=== PATIENT | female | born 1950 | race Caucasian/White ===

== ENCOUNTER 2017-07-24 13:08 | Outpatient (CLI) | payer MEDICARE, OTHER ==
--- NOTE | 2017-07-24 15:17 | XRAY Report ---
BILATERAL KNEES: 07/24/2017 COMPARISON: No comparison. INDICATION: Bilateral knee pain. TECHNIQUE: Three views of each knee. FINDINGS: There are small enthesophytes of the superior patellae bilaterally. No other degenerative changes. Normal alignment. No evidence of acute fracture. IMPRESSION: SMALL PATELLAR ENTHESOPHYTES. OTHERWISE, NEGATIVE KNEES. TD: 07/24/2017 15:16 [facility]
--- NOTE | 2017-07-24 15:19 | XRAY Report ---
THORACIC SPINE: 07/24/2017 COMPARISON: No comparison. INDICATION: Thoracic spine pain. TECHNIQUE: Two views. FINDINGS: Normal alignment. No evidence of acute fracture. No appreciable degenerative changes. IMPRESSION: NEGATIVE THORACIC SPINE. TD: 07/24/2017 15:18 [facility]
== END 2017-07-24 13:09 | disposition home or self-care (01) ==
LOC: DI.S 13:08
PROVIDERS: ATTEND Internal Medicine
DX: M54.6 Pain in thoracic spine (principal); M25.561 Pain in right knee; M25.562 Pain in left knee; M76.892 Other specified enthesopathies of left lower limb, excluding foot; M76.891 Other specified enthesopathies of right lower limb, excluding foot
CPT/HCPCS: 72070

== ENCOUNTER 2017-07-24 13:10 | Outpatient (CLI) | payer MEDICARE, OTHER ==
--- NOTE | 2017-07-25 13:53 | Mammography Report ---
BILATERAL SCREENING MAMMOGRAM: 07/24/2017 COMPARISON: Mammogram 11/25/2014. INDICATION: Screening. TECHNIQUE: Routine CC and MLO projections were obtained of the breasts. FINDINGS: The breast parenchyma is heterogeneously dense which may limit the sensitivity of mammography. No dominant mass, architectural distortion, or concerning cluster of microcalcifications is seen. IMPRESSION: 1. BI-RADS CATEGORY 1 - NEGATIVE. 2. RECOMMEND ANNUAL SCREENING MAMMOGRAM. STANDARD QUALIFYING STATEMENTS: 1. This examination was reviewed with the aid of Computer-Aided Detection (CAD) . 2. A negative or benign imaging report should not delay biopsy if clinically suspicious findings are present. Consider surgical consultation if warranted. More than 5 % of cancers are not identified by imaging. 3. Dense breasts may obscure an underlying neoplasm. TD: 07/25/2017 13:52 [facility]
== END 2017-07-24 13:11 | disposition home or self-care (01) ==
LOC: DI.S 13:10
PROVIDERS: ATTEND Internal Medicine
DX: Z12.31 Encounter for screening mammogram for malignant neoplasm of breast (principal)
CPT/HCPCS: 77067

== ENCOUNTER 2017-12-30 16:10 | Outpatient (CLI) | payer MEDICARE, OTHER ==
--- NOTE | 2017-12-31 01:32 | XRAY Report ---
Procedure Date: 12/30/2017 Accession Number: [id number] / [id number] Procedure: XR - Foot 3 View RT CPT Code: FULL RESULT: EXAM: RIGHT FOOT RADIOGRAPHY EXAM DATE: 12/30/2017 04:22 PM. CLINICAL HISTORY: PAIN OF TOE R FOOT. COMPARISON: None. TECHNIQUE: 3 views. FINDINGS: Bones: No evidence of displaced fracture. Joints: No evidence of dislocation. Soft Tissues: No unexpected soft tissue findings. IMPRESSION: No evidence of fracture or dislocation. RADIA
== END 2017-12-30 16:11 | disposition home or self-care (01) ==
LOC: DI 16:10
PROVIDERS: ATTEND Internal Medicine
DX: M79.674 Pain in right toe(s) (principal)

== ENCOUNTER 2018-11-04 15:32 | Outpatient (CLI) | payer MEDICARE, OTHER ==
--- NOTE | 2018-11-05 09:09 | DEXA Report ---
Reason: ASYMPTOMATIC MENOPAUSAL STATE Procedure Date: 11/04/2018 Accession Number: [id number] / [id number] Procedure: DEX - Dexa Spine and/or Hip CPT Code: FULL RESULT: EXAM: Dexa Spine and/or Hip DATE: 11/04/2018 4:30 PM CLINICAL HISTORY: ASYMPTOMATIC MENOPAUSAL STATE TECHNIQUE: Dual energy x-ray absorptiometry (DXA) was performed on a [employer]ilient System. Regions measured are the AP Spine, femoral neck, and if needed forearm. COMPARISON: None. In accordance with the International Society for Clinical Densitometry (ISCD) guidelines, data from previous exams may be reanalyzed using current recommendations and techniques. This is done to allow a more accurate basis for comparison with the current study. FINDINGS: The data for the lumbar spine is as follows: BMD (g/cm/cm) T-SCORE Z-SCORE REGION L1 0.582 -4.6 -3.1 L2 0.644 -4.6 -3.2 L3 0.610 -4.9 -3.5 L4 0.717 -4.0 -2.6 TOTAL 0.641 -4.5 -3.0 NOTE: All evaluable vertebrae are used for classification The data for the hip is as follows: BMD (g/cm/cm) T-SCORE Z-SCORE REGION Neck 0.679 -2.6 -1.1 TOTAL 0.650 -2.8 -1.6 NOTE: The femoral neck or total proximal femur, whichever is lowest, is used for classification. IMPRESSION: THE WHO CLASSIFICATION BASED ON THE INTERNATIONAL REFERENCE STANDARD IS OSTEOPOROSIS. THE FRACTURE RISK IS HIGH. Please note that osteoporosis in the lumbar spine is profound. RECOMMENDATION: Patients with diagnosis of osteoporosis or osteopenia should have regular bone mineral density assessment. For those eligible for Medicare, routine testing is allowed once every 2 years. Testing frequency can be increased for patients who have rapidly progressing disease or for those who are receiving medical therapy to restore bone mass. COMMENT: World Health Organization (WHO) definitions for osteoporosis and osteopenia: NORMAL BMD: T-score at -1.0 or higher, fracture risk is low OSTEOPENIA BMD: T-score between -1.0 and -2.5, fracture risk is increased. OSTEOPOROSIS BMD: T-score at -2.5 or lower, fracture risk is high. National Osteoporosis Foundation recommends: 1. Obtain adequate dietary calcium (at least 1200 mg per day) and vitamin D (400-800 international units per day). 2. Participate, as appropriate, in regular weightbearing and muscle-strengthening exercise. 3. Avoid tobacco use and reduce alcohol and caffeine intake. 4. For more detailed information see the website at www.NOF.org.
== END 2018-11-04 15:33 | disposition home or self-care (01) ==
LOC: DI 15:32
PROVIDERS: ATTEND Internal Medicine
DX: M81.0 Age-related osteoporosis without current pathological fracture (principal)
CPT/HCPCS: 77080

== ENCOUNTER 2020-02-18 10:10 | Outpatient (CLI) | payer MEDICARE, OTHER | END 2020-02-18 23:59 | disposition home or self-care (01) | LOC: COV 10:10 | PROVIDERS: ATTEND Family Medicine | DX: R53.83 Other fatigue (principal); R68.83 Chills (without fever); R11.2 Nausea with vomiting, unspecified; Z20.828 Contact with and (suspected) exposure to other viral communicable diseases ==

== ENCOUNTER 2020-08-16 10:00 | Outpatient (CLI) | payer MEDICARE, OTHER ==
--- NOTE | 2020-08-17 09:37 | Mammography Report ---
BILATERAL DIGITAL SCREENING MAMMOGRAM 3D/2D WITH EXAGGERATED CC: 08/16/2020 CLINICAL: Family history of breast cancer. Comparison is made to exams dated: 07/24/2017 mammogram, 11/25/2014 mammogram, and 07/27/2011 mammogram - [facility]. The tissue of both breasts is heterogeneously dense. This may lower the sensitivity of mammography. No significant masses, calcifications, or other findings are seen in either breast. There has been no significant interval change. IMPRESSION: NEGATIVE There is no mammographic evidence of malignancy. A 1 year screening mammogram is recommended. This exam was interpreted at Station ID: [id number]. NOTE: For mammograms, a report in lay terms will be sent to the patient. Approximately 15% of breast malignancies will not be visualized mammographically. In the management of a palpable breast mass, a negative mammogram must not discourage biopsy of a clinically suspicious lesion. Electronically Signed By: Ricky Payan M.D. [email or web address]/[email or web address]:08/16/2020 11:14:15 ACR BI-RADS Category 1: Negative 3341F PARENCHYMAL PATTERN: (D) - The breast(s) demonstrate(s) heterogeneously dense fibroglandular clementine magallanes. BI-RADS CATEGORY: (1) - 1 RECOMMENDATION: (ANNUAL) - Recommend routine annual screening mammography. [id number] 1 year screening LATERALITY: (B)
== END 2020-08-16 10:01 | disposition home or self-care (01) ==
LOC: DI.S 10:00
DX: Z12.31 Encounter for screening mammogram for malignant neoplasm of breast (principal); Z80.3 Family history of malignant neoplasm of breast

== ENCOUNTER 2020-12-22 17:00 | Outpatient (CLI) | payer MEDICARE, OTHER | END 2020-12-22 17:01 | disposition home or self-care (01) | LOC: COV 17:00 | PROVIDERS: ATTEND Family Medicine | DX: R05 Cough (principal); R53.83 Other fatigue; R07.0 Pain in throat; Z20.822 Contact with and (suspected) exposure to COVID-19 ==

== ENCOUNTER 2022-03-30 08:00 | Outpatient (CLI) | payer MEDICARE, OTHER ==
--- NOTE | 2022-03-30 14:53 | XRAY Report ---
PROCEDURE: Foot 3 View RT INDICATIONS: RIGHT FOOT/TOE PAIN TECHNIQUE: 3 views of the foot were acquired. COMPARISON: 12/30/2017 FINDINGS: Bones: Scattered arthrosis, similar to slightly progressed compared to 2018. No dislocation. There is a suspected minimally displaced fracture of the proximal phalangeal neck of the fourth toe. Soft tissues: No suspicious calcifications. Achilles insertional enthesopathy. IMPRESSION: Minimally displaced fracture of the fourth proximal phalangeal neck. Reviewed by: Nicholas Gr MD on 03/30/2022 2:51 PM PST Approved by: Nicholas Gr MD on 03/30/2022 2:51 PM PST Station ID: [id number]
== END 2022-03-30 23:59 | disposition home or self-care (01) ==
LOC: DI.S 08:00
PROVIDERS: ATTEND Physician Assistant
DX: S92.511A Displaced fracture of proximal phalanx of right lesser toe(s), initial encounter for closed fracture (principal)

== ENCOUNTER 2023-01-25 09:14 | Outpatient (CLI) | payer MEDICARE, OTHER ==
[2023-01-25 15:06] LABS: BASOPHILS % (AUTO) 0.7 %; EOSINOPHILS # (AUTO) 0.4 10^3/uL (0.0-0.7); EOSINOPHILS % (AUTO) 8.2 %; HCT - HEMATOCRIT 40.3 % (37.0-47.0); HGB - HEMOGLOBIN 12.7 g/dL (12.0-16.0); LYMPHOCYTES # (AUTO) 1.6 10^3/uL (1.5-3.5); MEAN CORPUSCULAR HEMOGLOBIN 27.9 pg (27.0-31.0); MEAN CORPUSCULAR HGB CONC 31.5 g/dL (32.0-36.0); MEAN CORPUSCULAR VOLUME 88.4 fL (81.0-99.0); MEAN PLATELET VOLUME 11.7 fL (7.9-10.8); MONOCYTES # (AUTO) 0.4 10^3/uL (0.0-1.0); MONOCYTES % (AUTO) 6.7 %; NEUTROPHILS # (AUTO) 2.9 10^3/uL (1.5-6.6); NEUTROPHILS % (AUTO) 53.8 %; PLT - PLATELET COUNT 230 10^3/uL (130-450); RED BLOOD COUNT 4.56 10^6/uL (4.20-5.40); RED CELL DISTRIBUTION WIDTH 13.5 % (12.0-15.0); WHITE BLOOD COUNT 5.4 x10^3/uL (4.8-10.8)
[2023-01-25 15:24] LABS: CHOL/HDL RATIO 4.2 (<4.4); CHOLESTEROL 225 mg/dL; HDL CHOLESTEROL 53 mg/dL; LDL CHOLESTEROL,CALCULATED 145 mg/dL; LDL/HDL RATIO 2.7 (<4.4); TRIGLYCERIDES 136 mg/dL (48-352); VLDL CHOLESTEROL 27 mg/dL
[2023-01-25 21:42] LABS: ESTIMATED AVERAGE GLUCOSE 108 mg/dL (70-100); HEMOGLOBIN A1c% 5.4 % (4.27-6.07)
[2023-01-26 06:10] LABS: VITAMIN D 25-HYDROXY 41.6 ng/mL (30.0-100.0)
[2023-01-26 11:11] LABS: CALCIUM IONIZED SERUM 4.5 mg/dL (4.5-5.6)
== END 2023-01-25 09:15 | disposition home or self-care (01) ==
LOC: LAB.S 09:14
PROVIDERS: ATTEND Internal Medicine
DX: M81.0 Age-related osteoporosis without current pathological fracture (principal); Z13.228 Encounter for screening for other metabolic disorders; R03.0 Elevated blood-pressure reading, without diagnosis of hypertension
CPT/HCPCS: 36415; 80061; 82306; 82330; 83036; 83721; 83970; 85025

== ENCOUNTER 2023-01-29 14:35 | Outpatient (CLI) | payer MEDICARE, OTHER | END 2023-01-29 14:36 | disposition home or self-care (01) | LOC: LAB.R 14:35 | PROVIDERS: ATTEND Internal Medicine | DX: M81.0 Age-related osteoporosis without current pathological fracture (principal) | CPT/HCPCS: 81599; 82340; 82570 ==

== ENCOUNTER 2023-02-14 13:38 | Outpatient (CLI) | payer MEDICARE, OTHER ==
[2023-02-14 19:59] LABS: ALBUMIN 4.1 g/dL (3.2-5.5); ALBUMIN/GLOBULIN RATIO 1.8 (1.0-2.2); BILIRUBIN,TOTAL 0.4 mg/dL (0.2-1.0); CALCIUM 9.3 mg/dL (8.5-10.3); CREATININE 0.8 mg/dL (0.6-1.3); POTASSIUM 3.7 mmol/L (3.5-4.5); TOTAL PROTEIN 6.4 g/dL (6.4-8.9)
[2023-02-14 20:13] LABS: THYROID STIMULATING HORMONE 0.85 uIU/mL (0.34-5.60)
== END 2023-02-14 13:39 | disposition home or self-care (01) ==
LOC: LAB.S 13:38
PROVIDERS: ATTEND Psychiatry & Neurology Behavioral Neurology & Neuropsychiatry
DX: Z79.899 Other long term (current) drug therapy (principal); Z13.228 Encounter for screening for other metabolic disorders; E06.3 Autoimmune thyroiditis
CPT/HCPCS: 36415; 80053; 84443

== ENCOUNTER 2023-03-05 14:22 | Outpatient (CLI) | payer MEDICARE, OTHER ==
--- NOTE | 2023-03-05 15:48 | DEXA Report ---
PROCEDURE: Dexa Spine and/or Hip INDICATIONS: OSTEOPOROSIS TECHNIQUE: Dual energy x-ray absorptiometry (DXA) was performed on a Detectent System. Regions measur ed are the AP Spine, femoral neck, and if needed forearm. COMPARISON: 11/04/2018 FINDINGS: Lumbar Spine: Bone Mineral Density 0.808 g/cm/cm,T score -3.1. Osteoporosis Left Femoral Neck: Bone Mineral Density 0.752 g/cm/cm, T score -2.1. Osteopenia. Left Hip: Bone Mineral Density 0.759 g/cm/cm,T score -2.0.. Osteopenia (T score greater or equal to -1.0: NORMAL) (T score from -1.1 to -2.4: OSTEOPENIA) (T score less than or equal to -2.5 to: OSTEOPOROSIS) Impression: By WHO criteria, this patient has osteoporosis. Statistically significant increased density in the le ft hip and lumbar spine compared to prior of 17% and 26%, respectively, Patients with diagnosis of osteoporosis or osteopenia should have regular bone mineral density assess ment. For those eligible for Medicare, routine testing is allowed once every 2 years. Testing frequ ency can be increased for patients who have rapidly progressing disease or for those who are receivin g medical therapy to restore bone mass. Reviewed by: Rick Youngblood on 03/05/2023 3:46 PM PDT Approved by: Rick Youngblood on 03/05/2023 3:46 PM PDT Station ID: [id number]
== END 2023-03-05 14:23 | disposition home or self-care (01) ==
LOC: DI 14:22
PROVIDERS: ATTEND Internal Medicine
DX: N95.9 Unspecified menopausal and perimenopausal disorder (principal); M81.0 Age-related osteoporosis without current pathological fracture

== ENCOUNTER 2023-04-18 14:51 | Outpatient (CLI) | payer MEDICARE, OTHER ==
[2023-04-18 20:41] LABS: THYROID STIMULATING HORMONE 1.85 uIU/mL (0.34-5.60)
== END 2023-04-18 14:52 | disposition home or self-care (01) ==
LOC: LAB.S 14:51
PROVIDERS: ATTEND Internal Medicine
DX: E06.3 Autoimmune thyroiditis (principal)
CPT/HCPCS: 36415; 84443

== ENCOUNTER 2023-06-17 08:00 | Outpatient (CLI) | payer MEDICARE, OTHER ==
--- NOTE | 2023-06-18 08:40 | XRAY Report ---
PROCEDURE: Ankle 3 View RT INDICATIONS: RIGHT ANKLE PAIN TECHNIQUE: 3 views of the ankle were acquired. COMPARISON: X-ray right foot, 03/30/2022. FINDINGS: Bones: No fractures or dislocations. Ankle mortise is normally aligned. No suspicious bony lesions . Mild osteoarthritic changes. Soft tissues: No tibiotalar joint effusion. Calcification at the calcaneal insertion of Achilles te ndon consistent with enthesopathy. IMPRESSION: 1. No acute bony abnormality. 2. Mild osteoarthritic changes. 3. Achilles enthesopathy. Reviewed by: Chintan Stallworth MD on 06/18/2023 8:38 AM PST Approved by: Chintan Stallworth MD on 06/18/2023 8:38 AM PST Station ID: [id number]
== END 2023-06-17 23:59 | disposition home or self-care (01) ==
LOC: DI.WOS 08:00
PROVIDERS: ATTEND Physician Assistant Surgical
DX: M19.071 Primary osteoarthritis, right ankle and foot (principal); M76.891 Other specified enthesopathies of right lower limb, excluding foot